=== PATIENT | male | born 1975 | race Caucasian/White ===

== ENCOUNTER 2019-01-02 12:40 | Emergency (ER) | payer BC ==
[~2019-01-02] VITALS: Ht 175.3 cm; Wt 99.8 kg
--- NOTE | 2019-01-02 13:16 | Diagnostic Imaging Report ---
EXAMINATION: FOOT RIGHT COMPLETE INDICATION: Trauma COMPARISON: None FINDINGS: AP, lateral and oblique images of the right foot demonstrate no acute fracture or dislocation. Alignment is anatomic. The soft tissues appear unremarkable. IMPRESSION: No acute osseous injury. Signed by: Diane Morgan MD on 01/02/2019 1:13 PM
== END 2019-01-02 13:30 | disposition home or self-care (01) ==
LOC: ER 13:21
DX: S90.121A Contusion of right lesser toe(s) without damage to nail, initial encounter (principal); W22.01XA Walked into wall, initial encounter; Y92.008 Other place in unspecified non-institutional (private) residence as the place of occurrence of the external cause
CPT/HCPCS: 99283

== ENCOUNTER → 2019-12-30 | Outpatient (CLI) | payer BC | LOC: CT 13:29 | PROVIDERS: ATTEND Internal Medicine | DX: R06.09 Other forms of dyspnea (principal) | CPT/HCPCS: 71250 ==